=== PATIENT | female | born 1955 | race Caucasian/White ===

== ENCOUNTER 2020-11-29 08:38 | Outpatient (CLI) | payer BC | END 2020-11-29 08:39 | disposition home or self-care (01) | LOC: CSHMAMMO 08:38 | PROVIDERS: ATTEND Internal Medicine Hematology & Oncology | DX: C50.312 Malignant neoplasm of lower-inner quadrant of left female breast (principal); Z17.1 Estrogen receptor negative status [ER-] | CPT/HCPCS: 77066; G0279 ==

== ENCOUNTER 2022-12-06 08:53 | Outpatient (CLI) | payer MEDICARE, OTHER | END 2022-12-06 08:54 | disposition home or self-care (01) | LOC: CSHMAMMO 08:53 | PROVIDERS: ATTEND Internal Medicine Hematology & Oncology | DX: Z08 Encounter for follow-up examination after completed treatment for malignant neoplasm (principal); Z85.3 Personal history of malignant neoplasm of breast | CPT/HCPCS: 77066; G0279 ==